=== PATIENT | female | born 1940 | race Caucasian/White ===

== ENCOUNTER 2017-02-25 13:55 | Inpatient (IN) | payer MEDICARE, OTHER ==
--- NOTE | 2017-02-25 14:25 | ED ---
Altered Mental Status HPI - General Chief Complaint: Altered Mental Status Stated Complaint: pneumonia/UTI Time Seen by Provider: 02/25/17 13:55 Source: patient, EMS, RN notes reviewed, old records reviewed Mode of arrival: EMS Limitations: altered mental status - History of Present Illness Initial Comments: This is a 76-year-old female who was transferred from [facility] for inpatient treatment of pneumonia and UTI confusion. She was seen at [facility] and found to have a right lower lobe infiltrate on x-ray there is evidence of a UTI on her urinalysis. She's been confused calling out for her mother who is been on for a long time. The patient did come by EMS with a packet of information from the emergency department at [facility]. She was given IV antibiotics including Rocephin and Zithromax. She had fallen previously CAT scan head neck show no evidence of acute findings. MD Complaint: altered mental status, confusion, other - Related Data Home Medications Medication Instructions Recorded Confirmed Albuterol Nebulized [Ventolin 2.5 mg INHALATION RT-Q6H PRN 02/25/17 02/25/17 Nebulized] Bisacodyl 10 mg PO DAILY PRN 02/25/17 02/25/17 Calcium Carbonate 1,000 mg PO Q4H PRN 02/25/17 02/25/17 Celecoxib [CeleBREX] 200 mg PO DAILY@0900 02/25/17 02/25/17 Docusate [Colace] 100 mg PO BID@0900,1700 02/25/17 02/25/17 HYDROcodone/APAP 7.5-325MG [[place] 1 tab PO QID@,,,02/25/17 02/25/17 7.5-325] Melatonin 5 mg PO HS@2100 02/25/17 02/25/17 Neomycin/Polymyxin B/Dexametha 1 applic LEFT EYE BID@0600,2200 02/25/17 02/25/17 [Maxitrol Ophth Oint] Omeprazole [PriLOSEC] 20 mg PO DAILY@0600 02/25/17 02/25/17 Propranolol HCl [Propranolol HCl 60 mg PO DAILY@0900 02/25/17 02/25/17 ER] Sulfamethox-Tmp 800-160Mg [Bactrim 1 tab PO BID@0900,1700 02/25/17 02/25/17 DS 800-160 mg] clonazePAM [KlonoPIN] 0.5 mg PO HS@2100 02/25/17 02/25/17 Allergies Allergy/AdvReac Type Severity Reaction Status Date / Time codeine Allergy Unknown Verified 02/25/17 14:53 pregabalin [From Lyrica] Allergy Unknown Verified 02/25/17 14:53 Review of Systems ROS Statement: Those systems with pertinent positive or pertinent negative responses have been documented in the HPI. ROS Other: All systems not noted in ROS Statement are negative. Limitations: ROS unobtainable due to patients medical condition Past Medical History Past Medical History: Fibromyalgia, GERD/Reflux, Hypertension, Osteoarthritis ( OA) Additional Past Medical History / Comment(s): macular degeneration, neuropathy, chronic back pain History of Any Multi-Drug Resistant Organisms: None Reported Past Surgical History: Unable to Obtain Past Psychological History: Anxiety, Depression Smoking Status: Never smoker Past Alcohol Use History: None Reported Past Drug Use History: None Reported General Exam - General Exam Comments Initial Comments: This a well-developed well-nourished awake alert but confused female Limitations: altered mental status General appearance: alert, in no apparent distress Head exam: Present: atraumatic, normocephalic, normal inspection Eye exam: Present: normal appearance, PERRL, EOMI. Absent: scleral icterus, conjunctival injection, periorbital swelling ENT exam: Present: mucous membranes dry Neck exam: Present: normal inspection. Absent: tenderness, meningismus, lymphadenopathy Respiratory exam: Present: decreased breath sounds, other (Scattered basilar crackles) Cardiovascular Exam: Present: regular rate, normal rhythm, normal heart sounds. Absent: systolic murmur, diastolic murmur, rubs, gallop, clicks GI/Abdominal exam: Present: soft, normal bowel sounds. Absent: distended, tenderness, guarding, rebound, rigid Extremities exam: Present: normal inspection, full ROM, normal capillary refill. Absent: tenderness, pedal edema, joint swelling, calf tenderness Back exam: Present: normal inspection Neurological exam: Present: alert, altered, CN II-XII intact Psychiatric exam: Present: anxious Skin exam: Present: warm, dry, intact, normal color. Absent: rash Course Vital Signs 02/25/17 02/25/17 13:56 15:03 Temperature 98.6 F 98.4 F Pulse Rate 63 79 Respiratory 20 20 Rate Blood Pressure 131/57 118/66 O2 Sat by Pulse 96 94 L Oximetry Medical Decision Making - Medical Decision Making I did review the imaging a reports the lab work/charting from the other hospital. I did discuss case with Dr. Vaz the patient will be admitted for inpatient treatment Disposition Clinical Impression: Pneumonia, Dehydration, Delirium due to general medical condition Disposition: ADMITTED IP TO [facility] Condition: Stable Referrals: Russ Carrion MD [Primary Care Provider] - 1-2 days
[2017-02-25] MEDS ORDERED: PNEUMONIA PROTOCOL UTILIZED 1 EACH MISC PO PRN (15:22)
[2017-02-25] MEDS ORDERED: BISACODYL 5 MG TABLET.DR PO PRN (15:24)
[2017-02-25] MEDS ORDERED: CALCIUM CARBONATE 500 MG CHEWABLE PO PRN (15:24)
[2017-02-25] MEDS: SODIUM CHLORIDE 0.9% 1,000 ML IV SCH (15:52)
[2017-02-25] MEDS ORDERED: AZITHROMYCIN 500 MG TAB PO SCH (16:00)
[2017-02-25] MEDS: IPRATROPIUM-ALBUTEROL 3 ML NEB INHALATION SCH ×3 (17:15→23:32)
[2017-02-25] MEDS: HYDROcodone/APAP 7.5-325MG 1 EACH TAB PO SCH ×2 (17:59→21:19)
[2017-02-25] MEDS: NEOMYCIN-POLYMYXIN-DEXAMETH OINT 3.5 GM TUBE LEFT EYE SCH (21:19)
[2017-02-25] MEDS: clonazePAM 0.5 MG TAB PO SCH (21:20)
[2017-02-25] MEDS: MELATONIN 5 MG TABLET PO SCH (21:20)
[2017-02-26] MEDS: SODIUM CHLORIDE 0.9% 1,000 ML IV SCH ×2 (03:06→17:59)
[2017-02-26] MEDS: IPRATROPIUM-ALBUTEROL 3 ML NEB INHALATION SCH ×6 (03:16→23:15)
[2017-02-26] MEDS: NEOMYCIN-POLYMYXIN-DEXAMETH OINT 3.5 GM TUBE LEFT EYE SCH ×2 (05:55→22:08)
--- NOTE | 2017-02-26 08:21 | XR ---
EXAMINATION TYPE: XR chest 2V DATE OF EXAM: 02/26/2017 COMPARISON: chest x-ray 02/13/2012 HISTORY: Pneumonia, shortness of breath and chills TECHNIQUE: Frontal and lateral views of the chest are obtained. FINDINGS: Patchy basilar density is present. Bilateral apical pleural thickening is stable. Prominen t lung volumes suggests underlying COPD. Cardiomediastinal silhouette, pulmonary vascularity and aditya are not significantly changed. IMPRESSION: Basilar atelectasis versus pneumonia, correlate, follow-up to resolution.
[2017-02-26] MEDS: PROPRANOLOL LA 60 MG CAP.SA.24H PO SCH (08:54)
[2017-02-26] MEDS: MELOXICAM 7.5 MG TAB PO SCH (08:54)
[2017-02-26] MEDS: HYDROcodone/APAP 7.5-325MG 1 EACH TAB PO SCH ×4 (08:54→22:02)
[2017-02-26] MEDS: AZITHROMYCIN 500 MG TAB PO SCH (08:54)
[2017-02-26] MEDS: PANTOPRAZOLE 40 MG TABLET PO SCH (08:55)
[2017-02-26 11:45] VITALS: BMI 23.3
[2017-02-26] MEDS ORDERED: SODIUM CHLORIDE 0.9% 500 ML IV ONE (15:40)
[2017-02-26 16:22] LABS: Basophils % (A) 0 %; CH 32.9; CHCM 33.2; Eosinophils # (A) 0.1 k/uL (0-0.7); Eosinophils % (A) 1 %; HDW 2.48; HGB 11.8 gm/dL (11.4-16.0); Luc # (Auto) 0.37; Luc % (Auto) 3; Lymphocytes # (A) 1.8 k/uL (1.0-4.8); Lymphocytes % (A) 13 %; MCH 31.8 pg (25.0-35.0); MCHC 31.9 g/dL (31.0-37.0); MCV 99.7 fL (80.0-100.0); Macrocytosis Slight; Mean Platelet Volume 7.9; Monocytes # (A) 0.9 k/uL (0-1.0); Monocytes % (A) 7 %; Neutrophils # (A) 10.6 k/uL (1.3-7.7); Neutrophils % (A) 77 %; RBC 3.71 m/uL (3.80-5.40); RDW 14.4 % (11.5-15.5); WBC 13.8 k/uL (3.8-10.6); WBC (Perox) 14.24
[2017-02-26 16:41] LABS: ALT 31 U/L (9-52); AST 25 U/L (14-36); Alkaline Phosphatase 99 U/L (38-126); Anion Gap 6 mmol/L; Blood Urea Nitrogen 18 mg/dL (7-17); Calcium 8.4 mg/dL (8.4-10.2); Carbon Dioxide 23 mmol/L (22-30); Chloride 105 mmol/L (98-107); Glucose 110 mg/dL (74-99); Non-African American GFR(MDRD) >60 (>60 ml/min/1.73 sqM); Potassium 4.6 mmol/L (3.5-5.1); Sodium 134 mmol/L (137-145); Total Bilirubin 0.3 mg/dL (0.2-1.3); Total Protein 5.7 g/dL (6.3-8.2)
[2017-02-26] MEDS: DOCUSATE 100 MG CAP PO SCH (17:29)
--- NOTE | 2017-02-26 18:19 | P.HPIM ---
History of Present Illness H&P Date: 02/25/17 Chief Complaint: Altered mental status This is a 76-year-old female with a past medical history of hypertension, osteoarthritis, GERD, and fibromyalgia who was transferred from [facility] for inpatient treatment of pneumonia and UTI and confusion. Patient was only presented to [facility] status post fall. Patient had CT cervical spine and other multiple CT scans have showed no evidence of fracture. She was seen at [facility] and found to have a right lower lobe infiltrate on x-ray there is evidence of a UTI on her urinalysis. She's been confused calling out for her mother who is been on for a long time. She was given IV antibiotics including Rocephin and Zithromax. She had fallen previously CAT scan head neck show no evidence of acute findings. Patient denied any fever or chills. No chest pain no short of breath. No nausea vomiting or abdominal pain. Patient was confused and drowsy. Somewhat poor historian. She says that she had shingles along the left eye about 2 weeks ago and was on medications for that. Review of Systems Constitutional: Patient denies any fever or chills . No generalized weakness or weight loss. Abdomen: Patient denied nausea vomiting and diarrhea and abdominal pain. Cardiovascular: Patient denies any chest pain or short of breath no palpitations. Respiratory: patient denied any cough is from production. No shortness of breath Neurologic: Patient denied any numbness or tingling headache. Musculoskeletal: Patient denies any complaints of joint swelling or deformity. Skin: Negative Psychiatric: Negative Endocrine: No heat or cold intolerance. No recent weight gain. Genitourinary: No dysuria or hematuria. All other 14 point ROS negative except the above Past Medical History Past Medical History: Fibromyalgia, GERD/Reflux, Hypertension, Osteoarthritis ( OA) Additional Past Medical History / Comment(s): macular degeneration, neuropathy, chronic back pain , pne x 4,constipation,uti's,difficulty walking/falls History of Any Multi-Drug Resistant Organisms: None Reported Past Surgical History: Ear Surgery Additional Past Surgical History / Comment(s): unable to obtain any furthur sx hx rom pt. Past Anesthesia/Blood Transfusion Reactions: No Reported Reaction Smoking Status: Never smoker - Past Family History Mother Additional Family Medical History / Comment(s): "mom from complications of pne" Father Family Medical History: CVA/TIA Additional Family Medical History / Comment(s): in his sleep Medications and Allergies Home Medications Medication Instructions Recorded Confirmed Type Albuterol Nebulized [Ventolin 2.5 mg INHALATION RT-Q6H PRN 02/25/17 02/25/17 History Nebulized] Bisacodyl 10 mg PO DAILY PRN 02/25/17 02/25/17 History Calcium Carbonate 1,000 mg PO Q4H PRN 02/25/17 02/25/17 History Celecoxib [CeleBREX] 200 mg PO DAILY@0900 02/25/17 02/25/17 History Docusate [Colace] 100 mg PO BID@0900,1700 02/25/17 02/25/17 History HYDROcodone/APAP 7.5-325MG [[place] 1 tab PO QID@,,,21 02/25/17 02/25/17 History 7.5-325] Melatonin 5 mg PO HS@2100 02/25/17 02/25/17 History Neomycin/Polymyxin B/Dexametha 1 applic LEFT EYE BID@0600,2200 02/25/17 History [Maxitrol Ophth Oint] Omeprazole [PriLOSEC] 20 mg PO DAILY@0600 02/25/17 02/25/17 History Propranolol HCl [Propranolol HCl 60 mg PO DAILY@0900 02/25/17 02/25/17 History ER] Sulfamethox-Tmp 800-160Mg [Bactrim 1 tab PO BID@0900,1700 02/25/17 02/25/17 History DS 800-160 mg] clonazePAM [KlonoPIN] 0.5 mg PO HS@2100 02/25/17 02/25/17 History Allergies Allergy/AdvReac Type Severity Reaction Status Date / Time codeine Allergy Unknown Verified 02/25/17 14:53 pregabalin [From Lyrica] Allergy Unknown Verified 02/25/17 14:53 Physical Exam Vitals: Vital Signs Temp Pulse Pulse Resp BP BP Pulse Ox 02/25/17 20:29 87 02/25/17 20:20 86 02/25/17 17:55 98.2 F 92 18 112/63 94 L 02/25/17 17:26 93 02/25/17 17:18 90 02/25/17 16:56 98.7 F 95 20 110/62 94 L 02/25/17 16:15 98.7 F 69 20 124/58 94 L 02/25/17 15:03 98.4 F 79 20 118/66 94 L 02/25/17 13:56 98.6 F 63 20 131/57 96 Intake and Output 02/25/17 02/25/17 02/25/17 06:59 14:59 22:59 Other: Voiding Method Diaper Weight 63.503 kg Patient Weight 02/26/17 06:59 Weight 63.503 kg PHYSICAL EXAMINATION: Patient is lying in the bed comfortably, no acute distress, awake alert and oriented.. HEENT: Normocephalic. Neck is supple. Pupils reactive. Nostrils clear. Oral cavity is moist. Ears reveal no drainage. Neck reveals no JVD, carotid bruits, or thyromegaly. CHEST EXAMINATION: Trachea is central. Symmetrical expansion. Bibasilar crackles noted. No wheezing. Decreased breath sounds bibasilarly CARDIAC: Normal S1, S2 with no gallops. No murmurs ABDOMEN: Soft. Bowel sounds normal. No organomegaly. No abdominal bruits. Extremities: reveal no edema. No clubbing or cyanosis Neurologically awake, alert, oriented x3 with well-coordinated movements. Patient seems confused. No focal deficits noted Skin: No rash or skin lesions. Psychiatric: Operative. Nonsuicidal Musculoskeletal: No joint swelling or deformity. Normal range of motion. Results Results: Patient had lab workup done at [facility] showed sodium level 131. Potassium 6.0. Chloride 95. Bicarb 29. The UA on 19 creatinine 0.8 albumin 2.8 Chest x-ray showed right-sided small effusion and right-sided lower lobe infiltrate/atelectasis and left basilar atelectasis. CBC & Chem 7: 02/26/17 16:09 02/26/17 16:09 Assessment and Plan Plan: #1 altered mental status possible metabolic encephalopathy Secondary to Infection #2 bibasilar atelectasis and possible pneumonia #3 delirium due to acute medical condition #4 hypovolemic hyponatremia #5 mild hyperkalemia #6 GERD #7 osteoarthritis #8 hypertension #9 anxiety and depression #10 fibromyalgia Patient be continued on antibiotics in the form of ceftriaxone and azithromycin. Continue with the gentle hydration and recheck labs in the morning tomorrow. We will follow up culture reports and pain management. Further recommendations based on the clinical course. Time with Patient: Greater than 30
--- NOTE | 2017-02-26 18:22 | P.PN ---
Subjective Principal diagnosis: Bibasilar pneumonia This is a 76-year-old female with a past medical history of hypertension, osteoarthritis, GERD, and fibromyalgia who was transferred from [facility] for inpatient treatment of pneumonia and UTI and confusion. Patient was only presented to [facility] status post fall. Patient had CT cervical spine and other multiple CT scans have showed no evidence of fracture. She was seen at [facility] and found to have a right lower lobe infiltrate on x-ray there is evidence of a UTI on her urinalysis. She's been confused calling out for her mother who is been on for a long time. She was given IV antibiotics including Rocephin and Zithromax. She had fallen previously CAT scan head neck show no evidence of acute findings. Patient denied any fever or chills. No chest pain no short of breath. No nausea vomiting or abdominal pain. Patient was confused and drowsy. Somewhat poor historian. She says that she had shingles along the left eye about 2 weeks ago and was on medications for that. 02/26/2017 Patient is more awake and oriented today. There are any chest pain or short of breath. No complaints of nausea vomiting abdominal pain. Tolerating by mouth diet. No acute overnight issues. Pain is fairly controlled Objective - Vital Signs Vital signs: Vital Signs Temp 97.2 F L 02/26/17 15:00 Pulse 80 02/26/17 15:35 Resp 14 02/26/17 15:35 BP 86/52 02/26/17 15:00 Pulse Ox 96 02/26/17 15:23 Intake & Output 02/25/17 02/26/17 02/26/17 18:59 06:59 18:59 Weight 63.503 kg 63.503 kg Other: Voiding Method Diaper Diaper Diaper # Voids 1 1 - Exam PHYSICAL EXAMINATION: Patient is lying in the bed comfortably, no acute distress, awake alert and oriented.. HEENT: Normocephalic. Neck is supple. Pupils reactive. Nostrils clear. Oral cavity is moist. Ears reveal no drainage. Neck reveals no JVD, carotid bruits, or thyromegaly. CHEST EXAMINATION: Trachea is central. Symmetrical expansion. Lung manrique clear to auscultation and percussion. Decreased breath sounds bilateral diastole CARDIAC: Normal S1, S2 with no gallops. No murmurs ABDOMEN: Soft. Bowel sounds normal. No organomegaly. No abdominal bruits. Extremities: reveal no edema. No clubbing or cyanosis Neurologically awake, alert, oriented x3 with well-coordinated movements. No focal deficits noted Skin: No rash or skin lesions. Psychiatric: Operative. Nonsuicidal Musculoskeletal: No joint swelling or deformity. Normal range of motion. - Labs CBC & Chem 7: 02/26/17 16:09 02/26/17 16:09 Labs: Abnormal Lab Results - Last 24 Hours (Table) 02/26/17 02/26/17 Range/Units 16:09 16:09 WBC 13.8 H (3.8-10.6) k/uL RBC 3.71 L (3.80-5.40) m/uL Neutrophils # 10.6 H (1.3-7.7) k/uL Sodium 134 L (137-145) mmol/L BUN 18 H (7-17) mg/dL Glucose 110 H (74-99) mg/dL Total Protein 5.7 L (6.3-8.2) g/dL Albumin 2.7 L (3.5-5.0) g/dL Assessment and Plan Plan: #1 altered mental status possible metabolic encephalopathy Secondary to Infection. Improved #2 bibasilar atelectasis and possible pneumonia #3 delirium due to acute medical condition #4 hypovolemic hyponatremia #5 mild hyperkalemia #6 GERD #7 osteoarthritis #8 hypertension #9 anxiety and depression #10 fibromyalgia #11 [id number] protein calorie malnutrition with albumin level of 2.7. Plan: Patient be continued on antibiotics in the form of ceftriaxone and azithromycin. Continue with the gentle hydration and recheck labs in the morning tomorrow. We will follow up culture reports and pain management. Encourage incentive spirometry . Further recommendations based on the clinical course.
[2017-02-26] MEDS: clonazePAM 0.5 MG TAB PO SCH (22:02)
[2017-02-26] MEDS: MELATONIN 5 MG TABLET PO SCH (22:02)
[2017-02-26] MEDS ORDERED: IPRATROPIUM-ALBUTEROL 3 ML NEB INHALATION PRN (23:16)
[2017-02-27] MEDS: NEOMYCIN-POLYMYXIN-DEXAMETH OINT 3.5 GM TUBE LEFT EYE SCH ×2 (06:20→21:15)
[2017-02-27] MEDS: IPRATROPIUM-ALBUTEROL 3 ML NEB INHALATION SCH ×4 (07:46→20:00)
[2017-02-27] MEDS: DOCUSATE 100 MG CAP PO SCH ×2 (08:26→17:18)
[2017-02-27] MEDS: PANTOPRAZOLE 40 MG TABLET PO SCH (08:26)
[2017-02-27] MEDS: MELOXICAM 7.5 MG TAB PO SCH (08:27)
[2017-02-27] MEDS: AZITHROMYCIN 500 MG TAB PO SCH (08:27)
[2017-02-27] MEDS: PROPRANOLOL LA 60 MG CAP.SA.24H PO SCH (08:27)
[2017-02-27] MEDS: HYDROcodone/APAP 7.5-325MG 1 EACH TAB PO SCH ×4 (08:27→20:59)
[2017-02-27 09:12] LABS: Basophils % (A) 0 %; Eosinophils # (A) 0.2 k/uL (0-0.7); Eosinophils % (A) 1 %; HCT 37.9 % (34.0-46.0); HGB 12.5 gm/dL (11.4-16.0); Luc # (Auto) 0.41; Luc % (Auto) 3; Lymphocytes # (A) 1.5 k/uL (1.0-4.8); Lymphocytes % (A) 12 %; MCH 32.2 pg (25.0-35.0); MCHC 33.1 g/dL (31.0-37.0); MCV 97.4 fL (80.0-100.0); Mean Platelet Volume 6.8; Monocytes # (A) 0.8 k/uL (0-1.0); Monocytes % (A) 6 %; Neutrophils # (A) 9.9 k/uL (1.3-7.7); Neutrophils % (A) 78 %; RDW 13.9 % (11.5-15.5); WBC 12.8 k/uL (3.8-10.6); WBC (Perox) 13.11
[2017-02-27 09:16] LABS: Anion Gap 8 mmol/L; Blood Urea Nitrogen 14 mg/dL (7-17); Calcium 8.7 mg/dL (8.4-10.2); Carbon Dioxide 23 mmol/L (22-30); Chloride 103 mmol/L (98-107); Glucose 90 mg/dL (74-99); Non-African American GFR(MDRD) >60 (>60 ml/min/1.73 sqM); Potassium 4.5 mmol/L (3.5-5.1); Sodium 134 mmol/L (137-145)
[2017-02-27] MEDS: SODIUM CHLORIDE 0.9% 1,000 ML IV SCH ×2 (10:15→21:04)
[2017-02-27] MEDS ORDERED: IV VANCOMYCIN PER PHARMACY 1 EACH MISC MISCELLANE PRN (11:30)
[2017-02-27] MEDS: VANCOMYCIN 1,250 MG in SODIUM CHLORIDE 0.9% 250 ML IVPB SCH ×2 (12:28→21:15)
[2017-02-27] MEDS: clonazePAM 0.5 MG TAB PO SCH (20:59)
[2017-02-27] MEDS: MELATONIN 5 MG TABLET PO SCH (20:59)
[2017-02-28] MEDS: HYDROcodone/APAP 7.5-325MG 1 EACH TAB PO SCH ×3 (01:34→13:10)
[2017-02-28] MEDS: NEOMYCIN-POLYMYXIN-DEXAMETH OINT 3.5 GM TUBE LEFT EYE SCH (06:13)
[2017-02-28] MEDS: IPRATROPIUM-ALBUTEROL 3 ML NEB INHALATION SCH ×2 (07:26→11:34)
[2017-02-28 08:37] LABS: Basophils % (A) 0 %; CH 32.9; CHCM 33.2; Eosinophils # (A) 0.3 k/uL (0-0.7); Eosinophils % (A) 3 %; HCT 39.4 % (34.0-46.0); HDW 2.58; HGB 12.7 gm/dL (11.4-16.0); Luc # (Auto) 0.34; Luc % (Auto) 3; Lymphocytes # (A) 1.9 k/uL (1.0-4.8); Lymphocytes % (A) 16 %; MCH 32.2 pg (25.0-35.0); MCHC 32.3 g/dL (31.0-37.0); MCV 99.5 fL (80.0-100.0); Macrocytosis Slight; Mean Platelet Volume 7.5; Monocytes # (A) 0.7 k/uL (0-1.0); Monocytes % (A) 6 %; Neutrophils # (A) 8.5 k/uL (1.3-7.7); Neutrophils % (A) 72 %; RBC 3.96 m/uL (3.80-5.40); RDW 14.5 % (11.5-15.5); WBC 11.9 k/uL (3.8-10.6); WBC (Perox) 11.82
[2017-02-28] MEDS: DOCUSATE 100 MG CAP PO SCH (08:37)
[2017-02-28] MEDS: PROPRANOLOL LA 60 MG CAP.SA.24H PO SCH (08:37)
[2017-02-28] MEDS: AZITHROMYCIN 500 MG TAB PO SCH (08:37)
[2017-02-28] MEDS: MELOXICAM 7.5 MG TAB PO SCH (08:38)
[2017-02-28] MEDS: PANTOPRAZOLE 40 MG TABLET PO SCH (08:38)
[2017-02-28 08:52] LABS: Anion Gap 11 mmol/L; Blood Urea Nitrogen 11 mg/dL (7-17); Calcium 9.4 mg/dL (8.4-10.2); Carbon Dioxide 25 mmol/L (22-30); Chloride 101 mmol/L (98-107); Glucose 84 mg/dL (74-99); Non-African American GFR(MDRD) >60 (>60 ml/min/1.73 sqM); Potassium 4.9 mmol/L (3.5-5.1); Sodium 137 mmol/L (137-145)
[2017-02-28] MEDS: VANCOMYCIN 1,250 MG in SODIUM CHLORIDE 0.9% 250 ML IVPB SCH (09:51)
[2017-02-28] MEDS: SODIUM CHLORIDE 0.9% 1,000 ML IV SCH (11:22)
--- NOTE | 2017-02-28 11:40 | P.PN ---
Subjective Principal diagnosis: Bibasilar pneumonia This is a 76-year-old female with a past medical history of hypertension, osteoarthritis, GERD, and fibromyalgia who was transferred from [facility] for inpatient treatment of pneumonia and UTI and confusion. Patient was only presented to [facility] status post fall. Patient had CT cervical spine and other multiple CT scans have showed no evidence of fracture. She was seen at [facility] and found to have a right lower lobe infiltrate on x-ray there is evidence of a UTI on her urinalysis. She's been confused calling out for her mother who is been on for a long time. She was given IV antibiotics including Rocephin and Zithromax. She had fallen previously CAT scan head neck show no evidence of acute findings. Patient denied any fever or chills. No chest pain no short of breath. No nausea vomiting or abdominal pain. Patient was confused and drowsy. Somewhat poor historian. She says that she had shingles along the left eye about 2 weeks ago and was on medications for that. 02/26/2017 Patient is more awake and oriented today. There are any chest pain or short of breath. No complaints of nausea vomiting abdominal pain. Tolerating by mouth diet. No acute overnight issues. Pain is fairly controlled On 02/27/2017 Patient is more alert and oriented. Patient says that she cannot take care of herself at home. Patient is anxious about her medical condition. Denied any chest pain worsening short of breath. No fever no chills. No overnight issues. Objective - Vital Signs Vital signs: Vital Signs Temp 97.9 F 02/27/17 15:00 Pulse 90 02/27/17 20:10 Resp 16 02/27/17 15:00 BP 104/54 02/27/17 15:00 Pulse Ox 94 L 02/27/17 15:00 Intake & Output 02/27/17 02/27/17 02/28/17 06:59 18:59 06:59 Intake Total 500 700 Output Total 2 Balance 498 700 Intake: Intake, IV Titration 700 Amount Vancomycin 1,250 mg In 250 Sodium Chloride 0.9% 250 ml @ 125 mls/hr IVPB Q12HR@1000,2200 [facility] Rx#: [id number] cefTRIAXone 1,000 mg In 450 Sodium Chloride 0.9% 50 ml @ 100 mls/hr IVPB Q24HR [facility] Rx#:[id number] Oral 500 Output: Stool 2 Other: Voiding Method Bedside Commode Bedside Commode Diaper Diaper Incontinent Incontinent # Voids 2 1 # Bowel Movements 1 - Exam PHYSICAL EXAMINATION: Patient is lying in the bed comfortably, no acute distress, awake alert and oriented.. HEENT: Normocephalic. Neck is supple. Pupils reactive. Nostrils clear. Oral cavity is moist. Ears reveal no drainage. Neck reveals no JVD, carotid bruits, or thyromegaly. CHEST EXAMINATION: Trachea is central. Symmetrical expansion. Lung manrique clear to auscultation and percussion. Decreased breath sounds bilateral diastole CARDIAC: Normal S1, S2 with no gallops. No murmurs ABDOMEN: Soft. Bowel sounds normal. No organomegaly. No abdominal bruits. Extremities: reveal no edema. No clubbing or cyanosis Neurologically awake, alert, oriented x3 with well-coordinated movements. No focal deficits noted Skin: No rash or skin lesions. Psychiatric: Operative. Nonsuicidal Musculoskeletal: No joint swelling or deformity. Normal range of motion. - Labs CBC & Chem 7: 02/28/17 08:05 02/28/17 08:05 Labs: Abnormal Lab Results - Last 24 Hours (Table) 02/27/17 02/27/17 Range/Units 08:49 08:49 WBC 12.8 H (3.8-10.6) k/uL Neutrophils # 9.9 H (1.3-7.7) k/uL Sodium 134 L (137-145) mmol/L Microbiology - Last 24 Hours (Table) 02/25/17 19:25 Blood Culture - Preliminary Blood No Growth after 48 hours 02/25/17 19:17 Blood Culture Gram Stain - Final Blood Blood Culture - Final Micrococcus species 02/25/17 19:17 Blood Culture - Final Blood Assessment and Plan Plan: #1 altered mental status possible metabolic encephalopathy Secondary to Infection. Improved #2 bibasilar atelectasis and possible pneumonia #3 delirium due to acute medical condition #4 hypovolemic hyponatremia #5 mild hyperkalemia #6 GERD #7 osteoarthritis #8 hypertension #9 anxiety and depression #10 fibromyalgia #11 [id number] protein calorie malnutrition with albumin level of 2.7. Plan: Patient be continued on antibiotics in the form of ceftriaxone and azithromycin. Continue with the gentle hydration and recheck labs in the morning tomorrow. We will follow up culture reports and pain management. Encourage incentive spirometry . Further recommendations based on the clinical course.
--- NOTE | 2017-02-28 11:43 | P.DS ---
Providers Date of admission: 02/25/17 15:22 Expected date of discharge: 02/28/17 Attending physician: Enedina Vaz Primary care physician: Russ Carrion [facility] Course: Discharge diagnosis #1 altered mental status possible metabolic encephalopathy Secondary to Infection. Improved #2 bibasilar atelectasis and possible pneumonia. Continue the antibiotic course #3 delirium due to acute medical condition. Resolved #4 hypovolemic hyponatremia #5 mild hyperkalemia. Resolved #6 GERD #7 osteoarthritis #8 hypertension #9 anxiety and depression #10 fibromyalgia #11 [id number] protein calorie malnutrition with albumin level of 2.7. This is a 76-year-old female with a past medical history of hypertension, osteoarthritis, GERD, and fibromyalgia who was transferred from [facility] for inpatient treatment of pneumonia and UTI and confusion. Patient was only presented to [facility] status post fall. Patient had CT cervical spine and other multiple CT scans have showed no evidence of fracture. She was seen at [facility] and found to have a right lower lobe infiltrate on x-ray there is evidence of a UTI on her urinalysis. She's been confused calling out for her mother who is been on for a long time. She was given IV antibiotics including Rocephin and Zithromax. She had fallen previously CAT scan head neck show no evidence of acute findings. Patient denied any fever or chills. No chest pain no short of breath. No nausea vomiting or abdominal pain. Patient was confused and drowsy. Somewhat poor historian. She says that she had shingles along the left eye about 2 weeks ago and was on medications for that. 02/26/2017 Patient is more awake and oriented today. There are any chest pain or short of breath. No complaints of nausea vomiting abdominal pain. Tolerating by mouth diet. No acute overnight issues. Pain is fairly controlled\ On 02/27/2017 Patient is more alert and oriented. Patient says that she cannot take care of herself at home. Patient is anxious about her medical condition. Denied any chest pain worsening short of breath. No fever no chills. No overnight issues. On 02/28/2017 Patient says that her breathing is better today. Patient is more comfortable and denies any short of breath or chest pain. No overnight issues. Stable to be discharged to rehab today. Patient is lying in the bed comfortably, no acute distress, awake alert and oriented.. HEENT: Normocephalic. Neck is supple. Pupils reactive. Nostrils clear. Oral cavity is moist. Ears reveal no drainage. Neck reveals no JVD, carotid bruits, or thyromegaly. CHEST EXAMINATION: Trachea is central. Symmetrical expansion. Lung manrique clear to auscultation and percussion. Decreased breath sounds bilateral diastole CARDIAC: Normal S1, S2 with no gallops. No murmurs ABDOMEN: Soft. Bowel sounds normal. No organomegaly. No abdominal bruits. Extremities: reveal no edema. No clubbing or cyanosis Neurologically awake, alert, oriented x3 with well-coordinated movements. No focal deficits noted Skin: No rash or skin lesions. Psychiatric: Operative. Nonsuicidal Musculoskeletal: No joint swelling or deformity. Normal range of motion. Patient Condition at Discharge: Stable Plan - Discharge Summary New Discharge Prescriptions: New Levofloxacin [Levaquin] 750 mg PO DAILY #4 tab Continue Bisacodyl 10 mg PO DAILY PRN PRN Reason: Constipation Albuterol Nebulized [Ventolin Nebulized] 2.5 mg INHALATION RT-Q6H PRN PRN Reason: Shortness Of Breath Neomycin/Polymyxin B/Dexametha [Maxitrol Ophth Oint] 1 applic LEFT EYE BID@ 0600,2200 Docusate [Colace] 100 mg PO BID@0900,1700 Propranolol HCl [Propranolol HCl ER] 60 mg PO DAILY@0900 Omeprazole [PriLOSEC] 20 mg PO DAILY@0600 clonazePAM [KlonoPIN] 0.5 mg PO HS@2100 Melatonin 5 mg PO HS@2100 Celecoxib [CeleBREX] 200 mg PO DAILY@0900 Calcium Carbonate 1,000 mg PO Q4H PRN PRN Reason: Indigestion Changed HYDROcodone/APAP 7.5-325MG [[place] 7.5-325] 1 tab PO QID@09,13,17,21 PRN #30 PRN Reason: Pain Discontinued Sulfamethox-Tmp 800-160Mg [Bactrim DS 800-160 mg] 1 tab PO BID@0900,1700 Discharge Medication List Albuterol Nebulized [Ventolin Nebulized] 2.5 mg INHALATION RT-Q6H PRN 02/25/17 [ History] Bisacodyl 10 mg PO DAILY PRN 02/25/17 [History] Calcium Carbonate 1,000 mg PO Q4H PRN 02/25/17 [History] Celecoxib [CeleBREX] 200 mg PO DAILY@0900 02/25/17 [History] Docusate [Colace] 100 mg PO BID@0900,1700 02/25/17 [History] Melatonin 5 mg PO HS@209902/25/17 [History] Neomycin/Polymyxin B/Dexametha [Maxitrol Ophth Oint] 1 applic LEFT EYE BID@0600, 2200 02/25/17 [History] Omeprazole [PriLOSEC] 20 mg PO DAILY@0600 02/25/17 [History] Propranolol HCl [Propranolol HCl ER] 60 mg PO DAILY@0900 02/25/17 [History] clonazePAM [KlonoPIN] 0.5 mg PO HS@209902/25/17 [History] HYDROcodone/APAP 7.5-325MG [[place] 7.5-325] 1 tab PO QID@,13,17,21 PRN #30 [Rx] Levofloxacin [Levaquin] 750 mg PO DAILY #4 tab 02/27/17 [Rx] Follow up Appointment(s)/Referral(s): Russ Carrion MD [Primary Care Provider] - 1-2 days Discharge Disposition: TRANSFER TO SNF/ECF
[2017-02-28 16:28] VITALS: BP 103/57; PULSE 77; RESP 16; TEMP 97
== END 2017-02-28 15:43 | DRG 193 ==
LOC: EC 13:55 → 4MS4W 15:22
PROVIDERS: ADMIT Internal Medicine; ATTEND Internal Medicine
DX: J18.9 Pneumonia, unspecified organism (principal); G93.41 Metabolic encephalopathy; E44.0 Moderate protein-calorie malnutrition; N39.0 Urinary tract infection, site not specified; E87.1 Hypo-osmolality and hyponatremia; E87.5 Hyperkalemia; K21.9 Gastro-esophageal reflux disease without esophagitis; M19.90 Unspecified osteoarthritis, unspecified site; I10 Essential (primary) hypertension; F41.9 Anxiety disorder, unspecified; F32.9 Major depressive disorder, single episode, unspecified; M79.7 Fibromyalgia; H35.30 Unspecified macular degeneration; G62.9 Polyneuropathy, unspecified; G89.29 Other chronic pain; M54.9 Dorsalgia, unspecified; Z91.81 History of falling; Z86.19 Personal history of other infectious and parasitic diseases; Z79.899 Other long term (current) drug therapy; Z79.51 Long term (current) use of inhaled steroids; Z79.891 Long term (current) use of opiate analgesic; Z88.6 Allergy status to analgesic agent; Z88.8 Allergy status to other drugs, medicaments and biological substances; Z68.23 Body mass index [BMI] 23.0-23.9, adult; Z82.3 Family history of stroke
CPT/HCPCS: 71020; 80048; 80053; 85025; 87040; 94640; 94760; 96360; 99285